=== PATIENT | female | born 1960 | race Caucasian/White ===

== ENCOUNTER 2022-09-13 16:18 | Emergency (ER) | payer BC, OTHER ==
[~2022-09-13] VITALS: Ht 177.8 cm; Wt 96.6 kg
[~2022-09-13 16:18] MED LIST: BENTYL10 MG PO; CRESTOR PO; CRESTOR10 MG PO; GLUCOPHAGE XR500 MG PO; HYDROCHLOROTHIA25 MG PO; HYOSCYAMINE0.125 MG PO; LISINOPRIL-HCT1 EAC1 PO; LISINOPRIL20 MG PO; METFORMIN HCL500 MG PO; NORCO 5-325 TA1 EACH PO; ULTRAM 50MG50 MG PO; VICTOZA INJ
[2022-09-13] MEDS ORDERED: AZITHROMYCIN 250 MG TAB PO ONE (18:15)
[2022-09-13] MEDS ORDERED: CEFTRIAXONE 500 MG VIAL IM ONE (18:15)
[2022-09-13 18:27] LABS: CLARITY,URINE CLEAR (CLEAR); COLOR,URINE YELLOW (YELLOW); KETONES,URINE NEGATIVE (NEGATIVE); LEUKOCYTE ESTERASE ,URINE LARGE (NEGATIVE); NITRITE,URINE NEGATIVE (NEGATIVE); PROTEIN,URINE DIPSTICK TRACE (NEGATIVE); URINE UROBILINOGEN 0.2 mg/dL (0.2 - 1)
[2022-09-13 18:49] LABS: EPITHELIAL CELLS,URINE MANY /LPF; WBC,URINE (MAN) 21-50 /HPF (0-5)
[2022-09-13 18:50] LABS: BACTERIA,URINE MODERATE /HPF
[2022-09-13] MEDS ORDERED: KETOROLAC TROMETHAMINE 60 MG/2 ML VIAL IM ONE (19:15)
[2022-09-13] MEDS ORDERED: DOXYCYCLINE HY100 MG PO (19:25)
[2022-09-13] MEDS ORDERED: CEFDINIR300 MG PO (19:25)
[2022-09-13] MEDS ORDERED: METRONIDAZOLE500 MG PO (19:25)
[2022-09-13] MEDS ORDERED: CLEOCIN HCL300 MG PO (19:28)
[2022-09-13] MEDS ORDERED: NAPROSYN500 MG PO (19:30)
== END 2022-09-13 19:38 | disposition home or self-care (01) ==
LOC: ER 17:12
DX: N75.1 Abscess of Bartholin's gland (principal); N30.90 Cystitis, unspecified without hematuria; E11.9 Type 2 diabetes mellitus without complications; E78.5 Hyperlipidemia, unspecified; E78.00 Pure hypercholesterolemia, unspecified
CPT/HCPCS: 81001; 87491; 87591; 99284; J0696; 87081; 87110; 87205